=== PATIENT | female | born 1970 | race Asian ===

== ENCOUNTER 2018-12-05 05:45 | Day surgery (SDC) | payer BC ==
[~2018-12-05] VITALS: Ht 160 cm; Wt 51.7 kg
[2018-12-05 06:05] LABS: HCG,QUAL RESULT NEGATIVE (NEGATIVE)
[2018-12-05] MEDS ORDERED: CEFAZOLIN SOD 2 GM in D5W 50 ML IV ONE (07:00)
[2018-12-05] MEDS ORDERED: CEFAZOLIN 2 GM IVPB PREMIX 50 ML IV ONE (07:06)
[2018-12-05] MEDS ORDERED: fentaNYL CITRATE 250 MCG/5 ML AMP IV ONE (07:45)
[2018-12-05] MEDS ORDERED: fentaNYL CITRATE/PF 100 MCG/2 ML AMP IVP ONE (07:45)
[2018-12-05] MEDS ORDERED: ONDANSETRON HCL 4 MG/2 ML VIAL IVP ONE (07:45)
[2018-12-05] MEDS ORDERED: BUPIVACAINE /EPINEPHRINE/PF 0.25% 30 ML VIAL INJ ONE (07:45)
[2018-12-05] MEDS ORDERED: MIDAZOLAM HCL 5 MG/5 ML VIAL IVP ONE (07:45)
[2018-12-05] MEDS ORDERED: DEXTROSE 50% JECT 50 ML DISP.SYRIN IVP ONE (07:45)
[2018-12-05] MEDS ORDERED: NS IRRIG SOLN 1000 ML IR ONE (07:45)
[2018-12-05] MEDS ORDERED: PROPOFOL 200MG/ 20ML VIAL (DIPRIVAN) IV ONE (07:45)
[2018-12-05] MEDS ORDERED: ROPIVACAINE HCL/PF 0.2% EPIDURAL 200 ML PLAST..BAG EP ONE (07:45)
[2018-12-05] MEDS ORDERED: KETOROLAC TROMETHAMINE 30 MG VIAL IVP ONE (07:45)
[2018-12-05] MEDS ORDERED: ROCURONIUM BROMIDE 10 MG/ML (ZEMURON) IV ONE (07:45)
[2018-12-05] MEDS ORDERED: LR 1,000 ML IV.SOLN IV ONE (07:45)
[2018-12-05] MEDS ORDERED: SEVOFLURANE 15 MIN GAS INH ONE (07:45)
[2018-12-05] MEDS ORDERED: LR 1,000 ML IV SCH (08:27)
[2018-12-05] MEDS ORDERED: METOCLOPRAMIDE HCL 10 MG/2 ML VIAL IVP PRN (08:30)
[2018-12-05] MEDS ORDERED: MORPHINE 4 MG/ML INJ. SYRINGE IVP PRN ×3 (08:30)
[2018-12-05] MEDS ORDERED: HYDROcodone/ACETAMIN 5-325 MG TAB (NORCO/ VICODIN) PO PRN (11:15)
[2018-12-05] MEDS ORDERED: OXYCODONE/ACETAMINOPHEN 5-325 TABLET PO PRN ×2 (11:15)
[2018-12-05] MEDS ORDERED: ONDANSETRON HCL 4 MG/2 ML VIAL IM PRN (11:15)
[2018-12-05] MEDS ORDERED: ONDANSETRON HCL 4 MG/2 ML VIAL ONE (13:16)
[2018-12-05 13:28] VITALS: BP_SYST 108
[2018-12-05] MEDS ORDERED: METOCLOPRAMIDE HCL 10 MG/2 ML VIAL ONE (14:36)
[2018-12-05] MEDS ORDERED: CEFAZOLIN 1 GM IVPB PREMIX 50 ML IV ONE (17:00)
== END 2018-12-05 18:45 | disposition home or self-care (01) ==
LOC: SDS 05:45 → SMU 05:45 → SDS 18:45
PROVIDERS: ATTEND Specialist
DX: N92.0 Excessive and frequent menstruation with regular cycle (principal); D25.9 Leiomyoma of uterus, unspecified; D50.0 Iron deficiency anemia secondary to blood loss (chronic); N94.6 Dysmenorrhea, unspecified; N72 Inflammatory disease of cervix uteri; Z79.899 Other long term (current) drug therapy; Z98.890 Other specified postprocedural states
CPT/HCPCS: 58554; 64488; 84703; 88307; C1727; J0690 ×2; J1885; J2250; J2405; J2704; J2765; J3010 ×2; J3490; J7120; E0190; J7060